=== PATIENT | female | born 1950 | race Two or more races ===

== ENCOUNTER 2019-07-21 10:56 | Outpatient (CLI) | payer OTHER | END 2019-07-21 11:03 | disposition home or self-care (01) | LOC: MAMO-SONO 10:56 | PROVIDERS: ATTEND Obstetrics & Gynecology Obstetrics | DX: Z12.31 Encounter for screening mammogram for malignant neoplasm of breast (principal); N60.11 Diffuse cystic mastopathy of right breast; N60.12 Diffuse cystic mastopathy of left breast ==

== ENCOUNTER → 2019-07-21 | Outpatient (CLI) | payer OTHER | END | disposition home or self-care (01) | LOC: NUCLEAR 12:39 | PROVIDERS: ATTEND Obstetrics & Gynecology Obstetrics | DX: M81.0 Age-related osteoporosis without current pathological fracture (principal) ==

== ENCOUNTER → 2019-09-19 | Outpatient (CLI) | payer OTHER | END | disposition home or self-care (01) | LOC: NUCLEAR 09-18 09:00 | DX: R97.0 Elevated carcinoembryonic antigen [CEA] (principal) | CPT/HCPCS: 78815; A9552 ==

== ENCOUNTER 2020-06-08 15:15 | Outpatient (CLI) | payer OTHER | END 2020-06-08 15:19 | disposition home or self-care (01) | LOC: LAB 15:15 | PROVIDERS: ATTEND Radiology Diagnostic Radiology | DX: R93.5 Abnormal findings on diagnostic imaging of other abdominal regions, including retroperitoneum (principal); C18.0 Malignant neoplasm of cecum; R97.0 Elevated carcinoembryonic antigen [CEA] ==

== ENCOUNTER 2020-06-18 09:38 | Outpatient (CLI) | payer OTHER | END 2020-06-18 10:38 | disposition home or self-care (01) | LOC: TOM 09:38 | PROVIDERS: ATTEND Surgery | DX: C18.0 Malignant neoplasm of cecum (principal); R97.0 Elevated carcinoembryonic antigen [CEA]; R93.5 Abnormal findings on diagnostic imaging of other abdominal regions, including retroperitoneum | CPT/HCPCS: 74177; Q9965 ==

== ENCOUNTER 2020-07-19 09:00 | Inpatient (IN) | payer OTHER ==
[~2020-07-19] VITALS: Ht 162.6 cm; Wt 77.1 kg
[2020-07-22] MEDS ORDERED: SYNTHROID112 MCG (11:11)
[2020-07-22] MEDS ORDERED: LATANOPROST2.5 ML (11:11)
[2020-07-27] MEDS ORDERED: PERCOCET 5-3251 EACH PO (13:16)
[2020-07-27] MEDS ORDERED: AMOX-CLAV 875-1 EACH PO (13:17)
== END 2020-07-27 15:24 | disposition home or self-care (01) | DRG 331 ==
LOC: ADM 09:00 → EDSTATUS 09:00 → SURH 07-22 07:00 → O/R 07-22 10:12 → SURG 07-22 10:12
PROVIDERS: Specialist; ADMIT Surgery; ATTEND Surgery
PROC: 0UT90ZZ Resection of Uterus, Open Approach (ICD-10-PCS; 2020-07-22)
PROC: 0UT20ZZ Resection of Bilateral Ovaries, Open Approach (ICD-10-PCS; 2020-07-22)
PROC: 0UT70ZZ Resection of Bilateral Fallopian Tubes, Open Approach (ICD-10-PCS; 2020-07-22)
PROC: 8E0W0CZ Robotic Assisted Procedure of Trunk Region, Open Approach (ICD-10-PCS; 2020-07-22)
PROC: 4A12X4Z Monitoring of Cardiac Electrical Activity, External Approach (ICD-10-PCS; 2020-07-22)
PROC: 0DTF4ZZ Resection of Right Large Intestine, Percutaneous Endoscopic Approach (ICD-10-PCS; principal; 2020-07-22 07:00)
PROC: 07BB4ZZ Excision of Mesenteric Lymphatic, Percutaneous Endoscopic Approach (ICD-10-PCS; 2020-07-22 07:00)
DX: C18.0 Malignant neoplasm of cecum (principal); K63.5 Polyp of colon; R59.0 Localized enlarged lymph nodes; D25.1 Intramural leiomyoma of uterus; D25.2 Subserosal leiomyoma of uterus; N72 Inflammatory disease of cervix uteri; N80.0 Endometriosis of uterus; N84.0 Polyp of corpus uteri; N83.292 Other ovarian cyst, left side; N83.291 Other ovarian cyst, right side; E03.8 Other specified hypothyroidism; E66.9 Obesity, unspecified; G47.33 Obstructive sleep apnea (adult) (pediatric); Z20.822 Contact with and (suspected) exposure to COVID-19

== ENCOUNTER 2021-05-16 10:43 | Outpatient (CLI) | payer OTHER | END 2021-05-16 10:44 | disposition home or self-care (01) | LOC: NUCLEAR 10:43 | PROVIDERS: ATTEND General Practice | DX: M81.0 Age-related osteoporosis without current pathological fracture (principal) ==

== ENCOUNTER → 2021-05-16 | Outpatient (CLI) | payer OTHER ==
[~2021-05-16] MED LIST: AMOX-CLAV 875-1 EACH PO; LATANOPROST2.5 ML; PERCOCET 5-3251 EACH PO; SYNTHROID112 MCG
== END | disposition home or self-care (01) ==
LOC: MAMO-SONO 08:45
DX: R92.8 Other abnormal and inconclusive findings on diagnostic imaging of breast (principal)

== ENCOUNTER 2021-06-01 08:01 | Outpatient (CLI) | payer OTHER | END 2021-06-01 08:03 | disposition home or self-care (01) | LOC: NUCLEAR 08:01 | PROVIDERS: ATTEND Internal Medicine Hematology & Oncology | DX: C18.0 Malignant neoplasm of cecum (principal) | CPT/HCPCS: 78812; A9552 ==

== ENCOUNTER 2022-11-13 07:38 | Outpatient (CLI) | payer OTHER | END 2022-11-13 07:52 | disposition home or self-care (01) | LOC: MAMO-SONO 07:38 | PROVIDERS: ATTEND Family Medicine | DX: Z12.31 Encounter for screening mammogram for malignant neoplasm of breast (principal); I10 Essential (primary) hypertension ==

== ENCOUNTER 2024-09-23 09:07 | Outpatient (CLI) | payer OTHER | END 2024-09-23 09:10 | disposition home or self-care (01) | LOC: SONOGRAMA 09:07 | PROVIDERS: ATTEND Internal Medicine Endocrinology, Diabetes & Metabolism | DX: E04.8 Other specified nontoxic goiter (principal) ==